=== PATIENT | male | born 1935 | race Caucasian/White ===

== ENCOUNTER 2021-08-12 07:56 | Day surgery (SDC) | payer MEDICARE, OTHER, SELFPAY ==
--- OUTSIDE RECORDS SUMMARY | 2021-07-31 10:17 | XMS_ITS | Continuity of Care Document ---
:1935 Author Care Team Providers Name Role Phone MD Shauna Attending Physician MD Deidre Truong Primary Care Physician Chief Complaint and Reason for Visit Chief Complaint Chest Pain Reason for Visit [id number] Allergies, Adverse Reactions, Alerts Allergen Type Severity Reaction Last Verified Status Updated Lisinopril Allergy Unknown July 24, Active 2021 Social History Smoking Status Status Start Date End Date Date of Observat ion Ex-smoker (finding) January 9:07am Additional Data Assigned Sex Male Problems Active Problems Medical Problem Onset Date Status Urticaria Active Hives Active Chest pain Active Hyperlipidemia Active Medications Medication Status Dose Units Route Directions Qty Days Start End Ins tructions Date Date Cholecalcifero Active 1000 UNIT PO Daily 100 l (Vitamin D) 1,000 Unit TAB Ezetimibe Active 10 MG PO Daily 90 July (Zetia) 10 Mg , 2020 10:35a m Levothyroxine Active 100 MCG PO Daily 30 Sodium (Synthroid) 100 Mcg TAB Rosuvastatin Active 10 MG PO Daily 90 Calcium Atenolol Discontinu 25 MG PO Daily July ed 2021 9:52a m Atorvastatin Discontinu 10 MG PO Bedtime July Calcium ed , (Lipitor) 10 2021 Mg TAB 9:52a m Lisinopril Discontinu 5 MG PO Daily July ed 2021 9:52a m Procedures Procedure Date Performed Status Future Lab Clinic July 17, 2021 completed LIPID PANEL July 20, 2021 completed Relevant Diagnostic Tests and/or Laboratory Data Laboratory Results Test Date/Time Result Interpretation Reference Result Perfo rming Range Comment Site Cholesterol July 20, 90-199 [facility] Lab Level 2021 9:45am [address] [facility] [address] Triglycerides July 20 40-149 [facility] Lab Level 2021 9:45am [address] [facility] [address] LDL Cholesterol July 20 <100 [facility] Lab 2021 9:45am [address] [facility] [address] HDL Cholesterol July 20 50 >=40 [facility] Lab 2021 9:45am [address] [facility] [address] Vital Signs Vital Reading Result Reference Range Collection Date/ Time Height 66 [in_i] July 24, 2021 9:53am Height 167.64 cm July 24, 2021 9:53am Weight 180 [lb_av] July 24, 2021 9:53am Weight 81.186871 kg July 24, 2021 9:53am Body Temperature 98.6 [degF] July 24, 2021 9:53am Body Temperature 37 Yue July 24, 2021 9:53am BP Systolic 109 mm[Hg] July 24, 2021 9:53am BP Diastolic 63 mm[Hg] July 24, 2021 9:53am Heart Rate 60 /min July 24, 2021 9:53am Respiratory rate 16 /min July 24, 2021 9:53am Body surface area 1.91 m2 July 24 9:53am BMI (Body Mass Index) 29.1 kg/m2 July 24, 2021 9:53am Advance Directives Advance Directive Response Recorded Date/Time Has patient completed a Yes February 05 019 9:07am Health Care Directive? Insurance Providers Guarantor Mary Yanez Address [address] [phone] Contact Info. Home Phone: CELL Payer Policy Id Coverage Id Subscriber's Subscriber Id Effective E xpiration Name Date Date Medicare [id number] Mary Yanez [facility] [id number] Mary Yanez [id number] Health Care Encounters Encounter Location(s) Arrival/Admit Discharge/Depart Provider(s ) Date Date Registered Clinics July 24, 2021 [facility] 10:00am A MD Office Visit Cardiology @ July 24, 2021 [facility] 10:00am A MD Office Visit OPHTHALMOLOGY July 23, 2021 [facility] CLINIC VISIT 9:00am Tana Villavicencio MD Registered [place] [facility] Adarsh KOLB Office Visit Cardiology @ July 20, 2021 [facility] 9:30am Adarsh KOLB Office Visit OPHTHALMOLOGY July 07, 2021 [facility] CLINIC VISIT 10:00am Tana Villavicencio MD Plan of Treatment Instructions from visit on: 07/24/21 Please follow the provider's instructions as discussed during your visit. Future Tests Future scheduled test information is unavailable Pending Tests Pending diagnostic test information is unavailable Future Visits Future appointment information is unavailable Referrals to Other Providers Reason for Referral Start Provider Provider Contact Provider Address Referral Date Information VotelFabián Work Phone: PIETRO WHITAKER MD [address] [place] [address] [facility] [phone] Future Procedures Future procedure information is unavailable Future Medications Future medication information is unavailable Patient Instructions See Additional Instructions Urticaria (ED) Goals Ambulatory Goals Reach or maintain optimal well being.
[2021-08-12] MEDS: KETOROLAC OPHTH 0.5% 1 DROP EYE-RIGHT ×3 (07:00→07:10)
[2021-08-12] MEDS: TETRACAINE 0.5% OPHTH 1 DROP EYE-RIGHT ×2 (07:00→07:05)
[2021-08-12 08:22] VITALS: BP 142/66; PULSE 61; RESP 16; TEMP 36.1; O2SAT 98
[2021-08-12 08:28] VITALS: BMI 32.9
--- NOTE | 2021-08-12 08:38 | SUR.PREOP ---
The eye drops brought by the patient (Ketorolac and Prednisolone) are examined and I have determined they are labeled by the patient's pharmacy for this patient as prescribed by the surgeon. The bottles are intact, recently obtained and appear to be correct.
[2021-08-12] MEDS: SODIUM CHLORIDE 0.9 % (FLUSH) 10 ML SYRINGE IVF (08:43)
--- NOTE | 2021-08-12 09:04 | W.ANESCHARGE ---
Anesthesia Charges Start Date/Time Anesthesia Start Date: 08/12/21 Anesthesia Start Time: 08:18 Stop Date/Time Anesthesia Stop Date: 08/12/21 Anesthesia Stop Time: 08:55 Summary Emergency: No
[2021-08-12] MEDS: TETRACAINE 0.5% OPHTH 2 DROP EYE-RIGHT (09:22)
[2021-08-12] MEDS: BALANCED SALT IRRIG SOLN 15 ML EYE-RIGHT (09:22)
[2021-08-12] MEDS: TRYPAN BLUE 0.5 ML SYRINGE EYE-RIGHT (09:22)
[2021-08-12 09:54] VITALS: BP 135/69; PULSE 62; RESP 16; TEMP 36.6
--- NOTE | 2021-08-12 09:57 | W.ANESCHARGE ---
Anesthesia Charges Start Date/Time Anesthesia Start Date: 08/12/21 Anesthesia Start Time: 09:12 Stop Date/Time Anesthesia Stop Date: 08/12/21 Anesthesia Stop Time: 09:55 Summary Emergency: No Extremes of Age: Over 70-CPT 45984
--- NOTE | 2021-08-12 10:36 | SUR.PHASEII ---
PT AND GIVEN D/C INSTRUCTIONS BOTH UNDERSTAND AND HAVE NO FURTHER QUESTIONS. DISCHARGED IN STABLE CONDTION
--- NOTE | 2021-08-12 12:49 | W.ANESCHARGE ---
Anesthesia Charges Start Date/Time Anesthesia Start Date: 08/12/21 Anesthesia Start Time: 09:12 Stop Date/Time Anesthesia Stop Date: 08/12/21 Anesthesia Stop Time: 09:55 Summary Emergency: No Extremes of Age: Over 70-CPT 48483
--- NOTE | 2021-08-12 14:35 | PM.PROC ---
Procedure Note Will [facility] bill your pro fee for this procedure?: Yes Procedure Description: SURGEON: Tana Kearney MD PREOPERATIVE DIAGNOSIS: 1. Nuclear sclerotic cataract, right eye. 2. Miosis, right eye. POSTOPERATIVE DIAGNOSIS: 1. Nuclear sclerotic cataract, right eye. 2. Miosis, right eye. NAME OF OPERATION: Phacoemulsification of cataract with posterior chamber intraocular lens implantation in the right eye with pupilloplasty. ANESTHESIA: Topical. ESTIMATED BLOOD LOSS: Less than 2 cc. COMPLICATIONS: None. PATHOLOGY SPECIMEN: None. INDICATIONS: See consult note for details. The risks, benefits and alternatives of the procedure were explained to the patient, who elected to proceed and signed informed consent to do so. PROCEDURE: The patient was brought to the pre-holding area where the right eye was identified as the operative eye. I placed my initials above this eye. The patient received eye drops consisting of 0.5% tetracaine, 1% tropicamide, 10% phenylephrine, and 0.5% ketorolac. The patient was then brought to the operating room where the right eye was again identified as the operative eye. The eye was prepped with Betadine and draped in the usual sterile ophthalmic fashion. A #15 super-sharp blade was used to create a paracentesis site. 1% non-preserved intracameral lidocaine was injected into the anterior chamber. Endocoat was injected into the anterior chamber. A 2.4 mm keratome was used to create a three-plane self-sealing incision 1 mm anterior to the temporal limbus. A #15 super-sharp blade was used to create four additional paracentesis sites. Four Grieshaber iris hooks were placed in order to stretch the iris. A cystotome was used to create an anterior capsular leaflet. The Utrata forceps were used to extend this to form a continuous curvilinear capsulorrhexis. Hydrodissection was performed. The cataract was removed with phacoemulsification using the hluuku-txs-[id number] technique. The irrigation and aspiration tip was used to remove the remaining cortex. Healon was injected into the capsular bag. An CATHIE ZCB00 intraocular lens of 23.0 diopters was injected into the capsular bag. The four Grieshaber iris hooks were removed. The irrigation and aspiration tip was used to remove the remaining viscoelastic. Miostat was injected into the anterior chamber. Balanced salt solution on a cannula was used to hydrate the wound, and the wound was found to be watertight. The pupil was noted to be round. DISPOSITION: The patient was taken to the recovery room and discharged to home in stable condition. The patient was instructed to call me or go to the emergency department with any sudden change, including dramatic loss of vision, severe pain in the eye or eyebrow region, nausea, or vomiting. The patient will follow up in the clinic tomorrow morning. Surgeon: Tana Kearney MD
== END 2021-08-12 10:34 | disposition home or self-care (01) ==
PROVIDERS: PCP Family Medicine; Visit Provider Ophthalmology
PROC: (CPT 66982; principal; 2021-08-12 08:00)
DX: H25.11 Age-related nuclear cataract, right eye (principal); H57.03 Miosis
CPT/HCPCS: 66982; 142; 99100; A9270; J2250; J3010; V2632

== ENCOUNTER 2021-08-26 07:18 | Day surgery (SDC) | payer MEDICARE, OTHER, SELFPAY ==
[2021-08-26] MEDS: TETRACAINE 0.5% OPHTH 1 DROP EYE-LEFT ×2 (07:34→07:44)
[2021-08-26] MEDS: KETOROLAC OPHTH 0.5% 1 DROP EYE-LEFT ×3 (07:40→07:56)
[2021-08-26 07:43] VITALS: BMI 32.8
[2021-08-26 07:49] VITALS: BP 123/76; PULSE 67; RESP 20; TEMP 36.3; O2SAT 96
[2021-08-26] MEDS: SODIUM CHLORIDE 0.9 % (FLUSH) 10 ML SYRINGE IVF (08:00)
[2021-08-26] MEDS: BALANCED SALT IRRIG SOLN 15 ML EYE-LEFT (08:59)
[2021-08-26] MEDS: TETRACAINE 0.5% OPHTH 2 DROP EYE-LEFT (09:01)
--- NOTE | 2021-08-26 09:26 | W.ANESCHARGE ---
Anesthesia Charges Start Date/Time Anesthesia Start Date: 08/26/21 Anesthesia Start Time: 08:46 Stop Date/Time Anesthesia Stop Date: 08/26/21 Anesthesia Stop Time: 09:24 Summary Emergency: No Extremes of Age: Over 71-CPT 13414
--- NOTE | 2021-08-26 09:30 | PM.PROC ---
Procedure Note Will [facility] bill your pro fee for this procedure?: Yes Procedure Description: SURGEON: Tana Kearney MD PREOPERATIVE DIAGNOSIS: 1. Nuclear sclerotic cataract, left eye. 2. Miosis, left eye. POSTOPERATIVE DIAGNOSIS: 1. Nuclear sclerotic cataract, left eye. 2. Miosis, left eye. NAME OF OPERATION: Phacoemulsification of cataract with posterior chamber intraocular lens implantation in the left eye with pupilloplasty. ANESTHESIA: Topical. ESTIMATED BLOOD LOSS: Less than 2 cc. COMPLICATIONS: None. PATHOLOGY SPECIMEN: None. INDICATIONS: See consult note for details. The risks, benefits and alternatives of the procedure were explained to the patient, who elected to proceed and signed informed consent to do so. PROCEDURE: The patient was brought to the pre-holding area where the left eye was identified as the operative eye. I placed my initials above this eye. The patient received eye drops consisting of 0.5% tetracaine, 1% tropicamide, 10% phenylephrine, and 0.5% ketorolac. The patient was then brought to the operating room where the left eye was again identified as the operative eye. The eye was prepped with Betadine and draped in the usual sterile ophthalmic fashion. A #15 super-sharp blade was used to create a paracentesis site. 1% non-preserved intracameral lidocaine was injected into the anterior chamber. Endocoat was injected into the anterior chamber. A 2.4 mm keratome was used to create a three-plane self-sealing incision 1 mm anterior to the temporal limbus. A #15 super-sharp blade was used to create four additional paracentesis sites. Four Grieshaber iris hooks were placed in order to stretch the iris. A cystotome was used to create an anterior capsular leaflet. The Utrata forceps were used to extend this to form a continuous curvilinear capsulorrhexis. Hydrodissection was performed. The cataract was removed with phacoemulsification using the neqlvy-hzc-zsyycmc technique. The irrigation and aspiration tip was used to remove the remaining cortex. Healon was injected into the capsular bag. An CATHIE ZCB00 intraocular lens of 22.5 diopters was injected into the capsular bag. The four Grieshaber iris hooks were removed. The irrigation and aspiration tip was used to remove the remaining viscoelastic. Miostat was injected into the anterior chamber. Balanced salt solution on a cannula was used to hydrate the wound, and the wound was found to be watertight. The pupil was noted to be round. DISPOSITION: The patient was taken to the recovery room and discharged to home in stable condition. The patient was instructed to call me or go to the emergency department with any sudden change, including dramatic loss of vision, severe pain in the eye or eyebrow region, nausea, or vomiting. The patient will follow up in the clinic tomorrow morning. Surgeon: Tana Kearney MD
[2021-08-26 09:33] VITALS: BP 129/79; PULSE 61; RESP 16; TEMP 36.3; O2SAT 98
== END 2021-08-26 09:54 | disposition home or self-care (01) ==
PROVIDERS: PCP Family Medicine; Visit Provider Ophthalmology
PROC: (CPT 66982; principal; 2021-08-26 07:30)
DX: H25.12 Age-related nuclear cataract, left eye (principal); H57.03 Miosis
CPT/HCPCS: 66982; 00142; 99100; A9270; J2250; J3010; V2632

== ENCOUNTER 2024-12-31 09:49 | Emergency (ER) | payer MEDICARE, OTHER, SELFPAY ==
[2024-12-31] VITALS (18 sets, daily range): BP systolic 110–170; BP diastolic 63–112; PULSE 52–87; RESP 4–29; TEMP 36.4; O2SAT 95–99; BMI 30.3
--- OUTSIDE RECORDS SUMMARY | 2024-12-31 09:53 | XMS_ITS | Clinical Summary ---
Author Organization [facility] Address [address] [place] [address] Care Team Providers Care Grain Trimmer Name Role Phone Votel, Fabián Reed MD Primary Care Provider + Allergies Active Allergy Reactions Criticality Noted Date Comments Lisinopril Hives 08/24/2017 Medications ASPIRIN 81 MG TAB, DELAYED RELEASEIndications:C oronary atherosclerosis of unspecified type of vessel, chippewa-cree or graft 0 7 Active cholecalciferol (VITAMIN D) 1,000 unit capsuleIndications:V itamin D deficiency Take 1 capsule by mouth once daily. 0 9 Active VITAMINS A,C,G-FSTI-GQDCYB (Ocuvite PreserVision) 7,160 unit- 113 mg-100 unit tablet Take 1 Tablet by mouth once daily. 0 2 Active rosuvastatin (CRESTOR) 40 mg tabletIndications:At herosclerosis of coronary artery, unspecified vessel or lesion type, unspecified whether angina present, unspecified whether chippewa-cree or transplanted heart Take 1 Tablet (40 mg) by mouth at bedtime. 90 Tablet 3 5 Active losartan (COZAAR) 25 mg tabletIndications:Es sential hypertension Take 0.5 Tablets (12.5 mg) by mouth once daily. 45 Tablet 3 5 Active levothyroxine (SYNTHROID) 75 mcg tabletIndications:Hy pothyroidism, unspecified type Take 1 Tablet (75 mcg) by mouth once daily. 90 Tablet 3 5 Active ezetimibe (ZETIA) 10 mg tabletIndications:Hy perlipidemia, unspecified hyperlipidemia type Take 1 Tablet (10 mg) by mouth once daily. 90 Tablet 3 5 Active carvediloL (COREG) 3.125 mg tabletIndications:At herosclerosis of coronary artery, unspecified vessel or lesion type, unspecified whether angina present, unspecified whether chippewa-cree or transplanted heart,Essential hypertension TAKE ONE TABLET BY MOUTH TWICE DAILY* 180 Tablet 3 5 Active Active Problems Problem Noted Date Diagnosed Date Arthritis of right shoulder 06/17/2024 Overview (07/02/2024): January 2022: bilateral ultrasound guided Shoulder injections by Dr. Ernandez: did provide some pain relief. Oct 2023: Dr. Ernandez Ultrasound guided cortisone and lidocaine injection to Right Shoulder GH joint June 2024: Dr. Ernandez Ultrasound guided cortisone and lidocaine injection to Right Shoulder GH joint Chronic left shoulder pain 08/05/2020 Overview (08/05/2020): July 2020: X-ray showing left GH osteoarthritis. Dr. Marcelino did cortisone injection to subacromial space. 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 08/24/2017 Vitamin D deficiency 12/04/2013 Colon polyp 12/19/2009 Overview (08/19/2020): Colonoscopy 12/2009 polyp repeat in 5 years Colonoscopy 12/2014 polyp repeat in 5 years Colonoscopy 08/2020 normal, no follow up needed Unspecified essential hypertension 06/20/2006 Other and unspecified hyperlipidemia 06/20/2006 Unspecified hypothyroidism 06/20/2006 Coronary atherosclerosis of unspecified type of vessel, chippewa-cree or graft Encounters Date Type Department Care Team Description 12/31/2024 Nurse Triage [facility] [address] [place] [address] VoteFabián melgar MD Concerns (pacemaker) from Last 3 Months Immunizations Immunization Administration Dates Next Due COVID-19 vaccine (Fed Playbook 30mcg/0.3mL) LUIS ALBERTO MURRAY 04/03/2020,03/12/2020 Influenza, High-dose Inactivated 024,12/10/2015,11/28/2014,11/28 Influenza, High-dose Quadriv alent Inactivated 11/22/2022,01/01/2022,12/05/2020 Influenza, IIV3 (Age 6-35 mos) 11/27/2010 Influenza, IIV3 (Age >=3 years) 12/28/2012,11/27,11/19/2009 Influenza, Inactivated AIIV4 (Age 65+ Years) Preserv Free 11/27/2019 Influenza, Inactivated IIV3 (Age 65+ Years) Preserv Free 01/23/2018,01/19/2017 Pneumococcal Poly,23-Valent (Pneumovax) 04/30/2002 Pneumococcal conj 13-Valent (Prevnar 13) 11/28/2014 RSV, Recombinant ADJ Reconst ituted (Arexvy 120MCG/0.5mL) 08/23/2024 Td (Age >=7 Years) 11/18/2004 Td, Preservative Free (age >= 7 Years) 5 Tdap 07/29/2014 Zoster (Zostavax-ZVL, live) 07/29/2014 Family History Medical History Relation Name Comments Diabetes Brother 2 Francisco sudden ag e 40 Heart Disease Brother 3 Marlan stent Heart Disease Father Other Father [place] Relation Name Status Comments Brother 1 (Age 40) Brother 2 Francisco Brother 3 Marlan Father (Age 51) Mother Social History Tobacco Use Types Packs/Day Years Used Date Smoking Tobacco: Former Cigarettes Q uit: 02/08/1980 Smokeless Tobacco: Never Tobacco Cessation:Counseling Given: Yes Alcohol Use Standard Drinks/Week Comments Yes 0 (1 standard drink = 0.6 oz pur e alcohol) 6-8 drinks per week PHQ-2 Answer Date Recorded PHQ-2 TOTAL SCORE 0 09/26/2024 Social Connections Answer Date Recorded Do you often feel lonely or isolated from those around you? 0 09/26/2024 Financial Resource Strain Answer Date R ecorded Difficulty of Paying Living Expenses 3 09/26/2024 Difficulty of Paying Living Expenses Not on file 09/26/2024 Food Insecurity Answer Date Recorded Do you worry your food will run out before you are able to buy more? 1 09/26/2024 Transportation Needs Answer Date Record ed Does lack of transportation keep you from medica l appointments? 1 09/26/2024 Does lack of transportation keep you from work, meetings or getting things that you need? 1 09/26/2024 Housing Stability Answer Date Recorded What is your housing situation today? 1 09/26/2024 Utilities Answer Date Recorded Do you have trouble paying f or utilities (for example, heat, electricity, water, phone)? 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 Gender Identity Not on file Sexual Orientation Not on file Occupation Industry Job Start Date Job End Date Retired Not on file Not on file Not on file Obstetrics History Last Filed Vital Signs Vital Sign Reading Time Taken Comments Blood Pressure 137/81 09/26/2024 12:31 PM CDT Pulse 61 09/26/2024 12:31 PM CDT Temperature 36.7 C (98.1 F) 09/26/2024 12:31 PM CDT Respiratory Rate 20 01/29/2020 1:39 PM IRON POURER Oxygen Saturation 98% 09/26/2024 12:31 PM CDT Inhaled Oxygen Concentration - - Weight 85.5 kg (188 lb 6.4 oz) 09/26/2024 12:31 PM CDT Height 161.8 cm (5' 3.7) 09/26/2024 12:31 PM CD T Body Mass Index 32.64 09/26/2024 12:31 PM CDT Plan of Treatment Health Maintenance Due Date Last Done Comments Zoster (shingles) series for age 50+ (2 of 3) 09/23/2014 07/29/2014 Tetanus booster 07/29/2024 07/29/2014, 11/07, 11/18/2004 Influenza Vaccine (#1) 2024 , 11/27/2019, 01/23/2018, Additional history exists BMI (ht and wt on same day) for age 18+ 09/26/2025 09/26/2024, 06/18/2024, 09/07/2023, Additional history exists Depression screening for age 12+ 09/26/2025 09/26/2024, 09/07/2023, 01/28/2022, Additional history exists Medicare Wellness for age 65+ 09/27/2025 09/26/2024, 09/07/2023, 01/28/2022, Additional history exists Pneumococcal series for age 50+ Completed 11/28/2014, 04/30/2002 RSV vaccine for adults or Completed 08/23/2024 Hepatitis B series for 19+ Aged Out N o longer eligible based on patient's age to complete this topic Insurance MEDICARE [place] ONLY MEDICARE PART B HB ONLY [facility] Care Teams Grain Trimmer Relationship Specialty Start Date End Date Votel, Fabián Reed MD [address] [place] [address] PCP - General Family Practice 01/12/22
--- OUTSIDE RECORDS SUMMARY | 2024-12-31 09:53 | XMS_ITS | Clinical Summary ---
Author Organization [facility] Address [address] [place] [address] Care Team Providers Care Rim Fire Priming Operator Name Role Phone Votel, Fabián Jiang Primary Care Provider [phone] Allergies Active Allergy Reactions Criticality Noted Date Comments Lisinopril Hives 08/24/2017 Medications ezetimibe (ZETIA) 10 MG tablet Take 1 tablet by mouth daily 08/06/2021 Active levothyroxine (SYNTHROID/LEVOT HROID) 75 MCG tablet Take 75 mcg by mouth 08/06/2021 Active losartan (COZAAR) 25 MG tablet Take 1 tablet by mouth daily 08/06/2021 Active Multiple Vitamins-Mineral s (PRESERVISION AREDS) TABS Take 1 tablet by mouth daily 08/06/2021 Active rosuvastatin (CRESTOR) 40 MG tablet Take 40 mg by mouth daily 08/06/2021 Active Active Problems Problem Noted Date Diagnosed Date Coronary atherosclerosis 05/19/2022 023 Chronic left shoulder pain 08/05/202005/19 Overview (05/19/2022): July 2020: X-ray showing left GH osteoarthritis. Dr. Marcelino did cortisone injection to subacromial space. Osteoarthritis of right glenohumeral joint 08/2405/19/2022 Vitamin D deficiency 12/04/2013 05/19/2022 Colon polyp 12/19/2009 05/19/2022 Overview (05/19/2022): Colonoscopy 12/2009 polyp repeat in 5 years Colonoscopy 12/2014 polyp repeat in 5 years Colonoscopy 08/2020 normal, no follow up needed Essential hypertension 06/20/2006 3 Hyperlipidemia 06/20/2006 05/19/2022 Hypothyroidism 06/20/2006 05/19/2022 Social History Tobacco Use Types Packs/Day Years Used Date Smoking Tobacco: Never Assessed PHQ-2 Answer Date Recorded PHQ-2 Score 0 08/23/2022 Adolescent Education Answer Date Record ed Getting School Help Needed Not on file 10/30 Sex and Gender Information Value Date Recorded Sex Assigned at Not on file 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 Gender Identity Not on file Sexual Orientation Not on file Last Filed Vital Signs Vital Sign Reading Time Taken Comments Blood Pressure 130/60 09/30/2022 10:05 AM CDT Pulse 69 09/30/2022 10:05 AM CDT Temperature - - Respiratory Rate 16 06/09/2022 12:07 PM CDT Oxygen Saturation 97% 09/30/2022 10:05 AM CDT Inhaled Oxygen Concentration - - Weight - - Height - - Body Mass Index - - Plan of Treatment Health Maintenance Due Date Last Done Comments ADVANCE CARE PLANNING 1936 ANNUAL REVIEW OF HM ORDERS 1936 BMP 1936 MARIANA ASSESSMENT 1936 LIPID 1936 PHQ-9 1936 TSH W/FREE T4 REFLEX 1936 FALL RISK ASSESSMENT 2001 RSV VACCINE (1 - 1-dose 75+ series) 11/26/2011 ZOSTER VACCINE (2 of 3) 09/23/2014 07/29/2014 MEDICARE ANNUAL WELLNESS VISIT 01/28/2023 01/28/2022, 07/15/2020 DTAP/TDAP/TD VACCINE (2 - Td or Tdap) 07/29/2024 07/29/2014, 11/18/2004, 11/18/2004 COVID-19 VACCINE ( season) 2024 12/16/2020, 04/03/2020, 03/12/2020 INFLUENZA VACCINE (#1) 2024 2, 12/05/2020, 11/27/2019, Additional history exists PNEUMOCOCCAL VACCINE 50+ YEARS Completed 11/28/2014, 04/30/2002 HPV VACCINE (No Doses Required) Completed MENINGITIS VACCINE Aged Out No longer eligible based on patient's age to complete this topic Insurance MEDICARE [facility] Care Teams Rim Fire Priming Operator Relationship Specialty Start Date End Date Votel, Fabián JAMES: [phone] [address] [place] [address] PCP - General Family Medicine 06/09/22
--- NOTE | 2024-12-31 10:24 | ED.GENADULT ---
HPI - General Adult General Chief complaint: Arrhythmia/Palpitations Stated complaint: Erratic heartrate Time Seen by Provider: 12/31/24 10:02 Source: patient Mode of arrival: ambulatory Limitations: no limitations History of Present Illness HPI narrative: 89-year-old male presenting today with is ?erratic heartbeat?. Patient states that for several months now he notices that every now and then he becomes fatigued when doing his usual daily activities, more than his baseline. When he checks his pulse on when these episodes happen, he notices that his pulse is very erratic. He states that it skips multiple beats or has several beats in a row. He denies feeling short of breath, lightheaded, dizzy or diaphoretic. He denies headache, blurry vision. No abdominal discomfort, nausea or vomiting. Patient does have a pacemaker in place. He was told that he needed a dual pacemaker by 1 physician and another physician said he did not need this so it was never done. Patient doctors for the most part in [place]. Past medical history significant for coronary artery disease status post bypass and stenting, pacemaker placed in 2019, obesity, hyperlipidemia, hypothyroidism, hypertension. Related Data Home Medications ?Medication ?Instructions ?Recorded ?Confirmed aspirin 81 mg tablet,delayed 81 mg PO DAILY 08/07/21 12/31/24 release cholecalciferol (vitamin D3) 25 1,000 unit PO DAILY 08/07/21 12/31/24 mcg (1,000 unit) tablet ezetimibe 10 mg tablet 10 mg PO DAILY 08/07/21 12/31/24 carvedilol 3.125 mg tablet 3.125 mg PO BID 12/31/24 12/31/24 levothyroxine 75 mcg tablet 75 mcg PO DAILY 12/31/24 12/31/24 losartan 25 mg tablet 12.5 mg PO DAILY 12/31/24 12/31/24 rosuvastatin 40 mg tablet 40 mg PO QPM 12/31/24 12/31/24 Allergies Allergy/AdvReac Type Severity Reaction Status Date / Time lisinopril Allergy Unknown Hives Verified 08/26/21 07:35 Review of Systems Status of ROS: Reports: 10 or more systems reviewed and unremarkable except as noted in History and below [facility] Medical History Melanoma ?C43.9 - Malignant melanoma of skin, unspecified (ICD-10) Chronic left shoulder pain ?M25.512 - Pain in left shoulder (ICD-10) ?G89.29 - Other chronic pain (ICD-10) Vitamin D deficiency ?E55.9 - Vitamin D deficiency, unspecified (ICD-10) Coronary atherosclerosis ?I25.10 - Atherosclerotic heart disease of [place] coronary artery without angina pectoris (ICD-10) Hypothyroidism ?E03.9 - Hypothyroidism, unspecified (ICD-10) Hyperlipemia ?E78.5 - Hyperlipidemia, unspecified (ICD-10) Hypertension ?I10 - Essential (primary) hypertension (ICD-10) Surgical History History of coronary artery stent placement ?Z95.5 - Presence of coronary angioplasty implant and graft (ICD-10) S/P CABG x 4 ?Z95.1 - Presence of aortocoronary bypass graft (ICD-10) Social History Smoking Status: Former smoker Do you use any of these nicotine containing products: None How often do you have a drink containing alcohol: 4 or more times a week How many standard drinks containing alcohol do you have on a typical day: 1 or 2 How often do you have six or more drinks on one occasion: Never AUDIT-C Alcohol total score: 4 Non-prescribed substance use: denies use Caffeine: Yes Exam Narrative: Exam Narrative: Overweight, well-developed patient in no acute distress. Alert and oriented. Answers questions appropriately. Mood and affect are appropriate. Thoughts are goal oriented and rational. No tangential or magical thinking noted. Patient speaks in full sentences without needing to catch his breath. HEENT: Normocephalic atraumatic. Pupils are equally round reactive to light. Extraocular muscles are intact. Conjunctivae are moist without any icterus noted. Moist mucous membranes. Cardiovascular: Regular rate, irregular rhythm. Lungs: Clear to auscultation bilaterally no wheezes rhonchi or rales are appreciated. Patient takes deep breaths without any discomfort. Extremities: Bilateral lower extremities are without pitting edema. Skin: Well perfused without any obvious rashes. Const: Vital Signs, click to edit/add: Vital Signs - 24 hr 12/31/24 09:52 12/31/24 10:32 12/31/24 10:33 Temperature 97.5 F L Pulse Rate 65 87 Pulse Rate [Pulse Oximeter] 73 Respiratory Rate 16 21 20 Blood Pressure 132/112 H Blood Pressure [Ri ght Upper Arm] 170/88 H Pulse Oximetry 96 95 99 Oxygen Delivery Me thod Room Air 12/31/24 10:42 12/31/24 10:45 12/31/24 11:00 Temperature Pulse Rate 73 69 Pulse Rate [Pulse Oximeter] Respiratory Rate 26 H 13 Blood Pressure Blood Pressure [Ri ght Upper Arm] Pulse Oximetry 98 98 97 Oxygen Delivery Me thod 12/31/24 11:02 12/31/24 11:15 12/31/24 11:30 Temperature Pulse Rate 64 58 L 65 Pulse Rate [Pulse Oximeter] Respiratory Rate 21 11 L 12 Blood Pressure 120/66 Blood Pressure [Ri ght Upper Arm] Pulse Oximetry 98 98 98 Oxygen Delivery Me thod 12/31/24 11:33 12/31/24 11:33 Temperature Pulse Rate 55 L 55 L Pulse Rate [Pulse Oximeter] Respiratory Rate 5 L 5 L Blood Pressure 133/71 133/71 Blood Pressure [Ri ght Upper Arm] Pulse Oximetry 99 99 Oxygen Delivery Me thod Course Course ED Course: EKG, read by me, shows an AV dual paced rhythm with frequent premature ventricular complexes, ventricular rate of 67. Blood work unremarkable. Cardiac monitoring showing PVCs. I did speak to Dr. Vasquez, cardiology at [facility], was able to look at the patient's records and he does indeed have a dual chamber pacemaker in place. We discussed that likely he is feeling his PVCs. I discussed this with the patient who says he has had these in the past. We discussed medical management versus monitoring. Patient is comfortable not changing his meds at this time. He does cardiology appointment already scheduled for February 11 in [place]. Vital Signs Vital signs: Initial Vital Signs Temperature 97.5 F L 12/31/24 09:52 Temperature Source Temporal Artery Scan 12/31/24 09:52 Pulse Rate 73 12/31/24 09:52 Respiratory Rate 16 12/31/24 09:52 Blood Pressure 170/88 H 12/31/24 09:52 Blood Pressure Mean 115 H 12/31/24 09:52 Blood Pressure Position Supine 12/31/24 09:52 Pulse Oximetry 96 12/31/24 09:52 Oxygen Delivery Method Room Air 12/31/24 09:52 Vital Signs Temperature 97.5 F L 12/31/24 09:52 Pulse Rate 73 12/31/24 09:52 Respiratory Rate 16 12/31/24 09:52 Blood Pressure 170/88 H 12/31/24 09:52 Pulse Oximetry 96 12/31/24 09:52 Oxygen Delivery Method Room Air 12/31/24 09:52 Temperature 97.5 F L 12/31/24 09:52 Pulse Rate 55 L 12/31/24 11:33 Respiratory Rate 5 L 12/31/24 11:33 Blood Pressure 133/71 12/31/24 11:33 Pulse Oximetry 99 12/31/24 11:33 Oxygen Delivery Method Room Air 12/31/24 09:52 Medical Decision Making MDM Narrative Medical decision making narrative: 89-year-old male with palpitations. Appears the patient is having symptomatic PVCs. Will follow-up with cardiology. Lab Data Lab results reviewed: Yes I reviewed the patient's lab results Labs: Lab Results 12/31/24 12/31/24 Range/Units 10:19 10:32 WBC 6.90 (4.50-11.00) K/uL RBC 4.32 (4.30-5.90) m/uL Hgb 13.2 L (13.5-17.5) gm/dL Hct 39.6 (37.0-53.0) % MCV 92 (80-100) fL MCH 31 (26-34) pg MCHC 33 (32-36) gm/dL RDW Coeff of Smita 12.4 (11.5-15.5) % Plt Count 184 (140-440) K/uL Neut % (Auto) 63.3 (42.0-72.0) % Lymph % (Auto) 24.8 (20-44) % [place] % (Auto) 10.1 (0.0-11.0) % Eos % (Auto) 1.6 (0.0-7.0) % Baso % (Auto) 0.1 (0.0-3.0) % Neut # (Auto) 4.36 (1.7-7.0) K/uL Lymph # (Auto) 1.71 (0.90-2.90) K/uL [place] # (Auto) 0.70 (0.00-0.90) K/UL Eos # (Auto) 0.11 (0.00-0.50) K/uL Baso # (Auto) 0.01 (0.00-0.30) K/uL Abs Immat Gran (auto) 0.01 (0.00-0.30) K/uL Imm/Tot Granulo (auto) 0.1 % Sodium 136 (135-149) mmol/L Potassium 4.5 (3.6-5.1) mmol/L Chloride 98 (96-114) mmol/L Carbon Dioxide 26 (20-32) mmol/L Anion Gap 12 (7-15) mEq/L BUN 19 (7-30) mg/dL Creatinine 1.2 (0.5-1.5) mg/dL Estimated Creat Clear 37.01 Estimated GFR 58 ml/min Glucose 152 H (60-115) mg/dL Calcium 9.4 (8.4-10.6) mg/dL Magnesium 1.8 (1.5-2.6) mg/dL Total Bilirubin 0.5 (0.1-1.5) mg/dL Direct Bilirubin 0.1 (0.0-0.5) mg/dL AST 28 (12-35) U/L ALT 28 (4-50) U/L Alkaline Phosphatase 43 (40-150) U/L Troponin I < 0.01 (0.01-0.04) ng/mL C-Reactive Protein < 0.5 L (0.5-1.0) mg/dL Total Protein 7.1 (6.0-8.3) g/dL Albumin 4.3 (3.3-5.0) g/dL SARS-CoV-2 (PCR) Negative SARS-CoV-2 (Negative) ECG Data Attestation: I personally reviewed and interpreted this ECG as follows: Discharge Plan Discharge Clinical Impression: Palpitations, Frequent PVCs Patient Disposition: Home, Self-Care Condition: Stable Additional Instructions: Follow-up with cardiology as scheduled. Prescriptions: No Action carvedilol 3.125 mg tablet 3.125 mg PO BID levothyroxine 75 mcg tablet 75 mcg PO DAILY losartan 25 mg tablet 12.5 mg PO DAILY rosuvastatin 40 mg tablet 40 mg PO QPM ezetimibe 10 mg tablet 10 mg PO DAILY cholecalciferol (vitamin D3) 25 mcg (1,000 unit) tablet 1,000 unit PO DAILY aspirin 81 mg tablet,delayed release (DR/EC) 81 mg PO DAILY Follow Up/Referrals: Fabián Truong MD [Primary Care Provider, Family Practice] Stand Alone Forms: [facility] Info Instructions
[2024-12-31 10:45] LABS: Hematocrit* 39.6 % (37.0-53.0); Hemoglobin* 13.2 gm/dL (13.5-17.5); Immature Granulocytes Abs Auto 0.01 K/uL (0.00-0.30); Immature Granulocytes Pct Auto 0.1 %; Lymphocytes Absolute Auto 1.71 K/uL (0.90-2.90); Mean Corpuscular HGB Conc 33 gm/dL (32-36); Mean Corpuscular Hemoglobin 31 pg (26-34); Mean Corpuscular Volume 92 fL (80-100); RDW Coefficient of Variation % 12.4 % (11.5-15.5); Red Blood Count* 4.32 m/uL (4.30-5.90); White Blood Count* 6.90 K/uL (4.50-11.00)
[2024-12-31 11:00] LABS: Slide Review Reflex No
[2024-12-31 11:02] LABS: Albumin* 4.3 g/dL (3.3-5.0); Chloride* 98 mmol/L (96-114); Potassium* 4.5 mmol/L (3.6-5.1); Sodium* 136 mmol/L (135-149)
[2024-12-31 11:09] LABS: SARS PCR* Negative SARS-CoV-2 (Negative)
[2024-12-31 12:25] LABS: Blood Urea Nitrogen* 19 mg/dL (7-30); Creatinine* 1.2 mg/dL (0.5-1.5); Est. Creatinine Clearance* 37.01; Estimated Glomerular Filt Rate 58 ml/min
[2024-12-31 12:26] LABS: Alanine Aminotransferase* 28 U/L (4-50); Alkaline Phosphatase* 43 U/L (40-150); Anion Gap 12 mEq/L (7-15); Aspartate Amino Transferase* 28 U/L (12-35); Bilirubin Direct* 0.1 mg/dL (0.0-0.5); Bilirubin Total* 0.5 mg/dL (0.1-1.5); Calcium* 9.4 mg/dL (8.4-10.6); Carbon Dioxide* 26 mmol/L (20-32); Glucose* 152 mg/dL (60-115); Total Protein* 7.1 g/dL (6.0-8.3)
== END 2024-12-31 12:58 | disposition home or self-care (01) ==
PROVIDERS: Emergency Provider Family Medicine; PCP Family Medicine
DX: R00.2 Palpitations (principal); I49.3 Ventricular premature depolarization; I25.10 Atherosclerotic heart disease of native coronary artery without angina pectoris; Z95.0 Presence of cardiac pacemaker; Z79.82 Long term (current) use of aspirin; Z95.1 Presence of aortocoronary bypass graft
CPT/HCPCS: 36415; 80048; 80076; 83735; 84443; 84484; 85025; 86140; 87635; 93005; 94761; 99284; 99285